=== PATIENT | male | born 1970 | race Caucasian/White ===

== ENCOUNTER 2018-03-13 23:55 | Emergency (ER) | payer OTHER ==
[~2018-03-13] VITALS: Ht 177.8 cm; Wt 67.1 kg
[2018-03-14 00:30] VITALS: BP 115/80
--- NOTE | 2018-03-14 00:30 | NUR ---
PT BIB SELF FOR FURTHER EVALUATION AND TX FOR "TINGLING" ON RIGHT TESTICLE X 2 DAYS. A/O X 3, AMBULATORY. ON ROOM AIR WT NO ACUTE DISTRESS. NO C/O PAIN ON TESTICLE EXCEPT TINGLING SENSATION. PLACED ON GOWN AND ON GURNEY. HOB AT 35 DEGREES. SAFETY PRECAUTION NOTED. AWAITING FOR MD EVALUATION AND ORDERS.
--- NOTE | 2018-03-14 00:50 | NUR ---
DR. CLEMENS AT BEDSIDE TO EVALUATE AND EXAMINE PT. AWAITING ORDERS.
--- NOTE | 2018-03-14 01:11 | NUR ---
CALLED LAB FOR [facility] [employer] SUPERVISOR.
[2018-03-14 02:07] LABS: APPEARANCE,URINE CLEAR (CLEAR); BILIRUBIN,URINE NEGATIVE (NEGATIVE); BLOOD, URINE NEGATIVE Ery/uL (NEGATIVE); COLOR,URINE YELLOW (YELLOW); KETONES,URINE NEGATIVE (NEGATIVE); LEUKOCYTE ESTERASE ,URINE NEGATIVE (NEGATIVE); NITRITE, URINE NEGATIVE (NEGATIVE); PROTEIN,URINE NEGATIVE (NEGATIVE); UGLUCOSE NEGATIVE (NEGATIVE); UROBILINOGEN,URINE 0.2 EU/dL (0.2)
== END 2018-03-14 01:37 | disposition home or self-care (01) ==
LOC: ER 03-14 00:07
DX: N50.9 Disorder of male genital organs, unspecified (principal); R20.0 Anesthesia of skin; Z98.890 Other specified postprocedural states
CPT/HCPCS: 81001; 87491; 87591; 99284; A4606; Z7610; 81000-TC

== ENCOUNTER 2022-05-06 14:59 | Emergency (ER) | payer OTHER ==
[~2022-05-06] VITALS: Ht 177.8 cm; Wt 68.9 kg
[2022-05-06 16:04] VITALS: BP 127/80
--- NOTE | 2022-05-06 19:45 | NUR ---
CALLED TO TRIAGE NO RESPONSE
== END 2022-05-06 21:12 | disposition left against medical advice (07) ==
LOC: ER 15:02
DX: Z53.21 Procedure and treatment not carried out due to patient leaving prior to being seen by health care provider (principal)